=== PATIENT | male | born 1980 | race Caucasian/White ===

== ENCOUNTER 2016-03-19 13:59 | Emergency (ER) | payer BC ==
[2015-09-21 01:34] VITALS: BMI 40.5
[~2016-03-19 13:59] MED LIST: COZAAR50 MG PO; HYDROCODONE-APA1 TAB PO; KEPPRA500 MG PO; NORCO 7.5/325 T1 TA1 PO; PROTONIX40 MG PO; ROBAXIN-750750 MG PO; XANAX0.25 MG PO; XANAX0.5 MG PO
== END 2016-03-19 15:46 | disposition home or self-care (01) ==
LOC: D.ER 13:59
DX: M54.16 Radiculopathy, lumbar region (principal); M54.5 Low back pain; G40.909 Epilepsy, unspecified, not intractable, without status epilepticus

== ENCOUNTER 2016-04-17 17:13 | Emergency (ER) | payer BC ==
[2015-09-21 01:34] VITALS: BMI 40.5
== END 2016-04-17 20:05 | disposition home or self-care (01) ==
LOC: D.ER 17:13
DX: S29.012A Strain of muscle and tendon of back wall of thorax, initial encounter (principal); W13.2XXA Fall from, out of or through roof, initial encounter; Y93.89 Activity, other specified; Y92.019 Unspecified place in single-family (private) house as the place of occurrence of the external cause; S39.012A Strain of muscle, fascia and tendon of lower back, initial encounter; M54.16 Radiculopathy, lumbar region; G40.909 Epilepsy, unspecified, not intractable, without status epilepticus

== ENCOUNTER 2016-04-19 15:52 | Emergency (ER) | payer BC ==
[2015-09-21 01:34] VITALS: BMI 40.5
== END 2016-04-19 20:25 | disposition home or self-care (01) ==
LOC: D.ER 15:52
DX: M54.16 Radiculopathy, lumbar region (principal); R32 Unspecified urinary incontinence; W13.2XXA Fall from, out of or through roof, initial encounter; Y93.89 Activity, other specified; Y92.89 Other specified places as the place of occurrence of the external cause

== ENCOUNTER 2016-05-02 14:22 | Emergency (ER) | payer BC ==
[2015-09-21 01:34] VITALS: BMI 40.5
== END 2016-05-02 19:10 | disposition home or self-care (01) ==
LOC: D.ER 14:22
DX: M54.9 Dorsalgia, unspecified (principal); M54.16 Radiculopathy, lumbar region; G40.909 Epilepsy, unspecified, not intractable, without status epilepticus

== ENCOUNTER 2016-05-12 07:38 | Emergency (ER) | payer SELFPAY ==
[2015-09-21 01:34] VITALS: BMI 40.5
== END 2016-05-12 08:20 | disposition home or self-care (01) ==
LOC: D.ER 07:38
DX: M54.5 Low back pain (principal); F17.200 Nicotine dependence, unspecified, uncomplicated

== ENCOUNTER 2016-05-15 17:20 | Emergency (ER) | payer SELFPAY ==
[2015-09-21 01:34] VITALS: BMI 40.5
[2016-05-15 18:58] LABS: BASOPHILS 0 % (0.0-2.0); EOSINOPHILS 0 % (0-7); IMMATURE GRANULOCYTES 0.3 % (0-5); LYMPHOCYTES 7.5 % (15-50); MCH 27.6 pg (26.0-34.0); MCHC 34.1 g/dL (31.0-37.0); MEAN PLATELET VOLUME 9.7 fL (7.4-10.4); MONOCYTES 0.4 % (2-11); NEUTROPHILS 91.8 % (40-80); PLATELET COUNT 247 10x3/uL (130-400); RBC 5.43 10x6/uL (4.20-6.10); RDW 14.2 % (11.5-14.5); WBC 6.7 10x3/uL (4.8-10.8)
[2016-05-15 19:10] LABS: ANION GAP 14.2 mmol/L (8-16); CALCIUM 9.8 mg/dL (8.5-10.1); CARBON DIOXIDE 24.7 mmol/L (21.0-32.0); CREATININE - SERUM 1.2 mg/dL (0.6-1.3); POTASSIUM - SERUM 3.9 mmol/L (3.5-5.1)
[2016-05-15 20:00] LABS: ERYTHROCYTE SEDIMENTATION RATE 5 mm/hr (0-15)
== END 2016-05-15 20:25 | disposition home or self-care (01) ==
LOC: D.ER 17:20
PROVIDERS: Nurse Practitioner Acute Care
DX: G89.29 Other chronic pain (principal); W18.30XA Fall on same level, unspecified, initial encounter; Y93.89 Activity, other specified; Y92.019 Unspecified place in single-family (private) house as the place of occurrence of the external cause; G40.909 Epilepsy, unspecified, not intractable, without status epilepticus

== ENCOUNTER 2016-05-28 10:03 | Emergency (ER) | payer SELFPAY ==
[2015-09-21 01:34] VITALS: BMI 40.5
== END 2016-05-28 14:58 | disposition home or self-care (01) ==
LOC: D.ER 10:03
DX: S69.91XA Unspecified injury of right wrist, hand and finger(s), initial encounter (principal); W23.1XXA Caught, crushed, jammed, or pinched between stationary objects, initial encounter; Y93.89 Activity, other specified; Y92.019 Unspecified place in single-family (private) house as the place of occurrence of the external cause; M79.641 Pain in right hand; G40.909 Epilepsy, unspecified, not intractable, without status epilepticus; M54.16 Radiculopathy, lumbar region

== ENCOUNTER 2016-12-28 11:45 | Emergency (ER) | payer SELFPAY ==
[2015-09-21 01:34] VITALS: BMI 40.5
== END 2016-12-28 14:16 | disposition home or self-care (01) ==
LOC: D.ER 11:45
DX: S80.01XA Contusion of right knee, initial encounter (principal); W19.XXXA Unspecified fall, initial encounter; Y93.89 Activity, other specified; Y92.029 Unspecified place in mobile home as the place of occurrence of the external cause

== ENCOUNTER 2017-01-16 16:04 | Emergency (ER) | payer SELFPAY ==
[2015-09-21 01:34] VITALS: BMI 40.5
[2017-01-16 16:32] LABS: APPEARANCE CLEAR (CLEAR); BILIRUBIN NEGATIVE (NEGATIVE); COLOR YELLOW (YELLOW); GLUCOSE NEGATIVE (NEGATIVE); KETONE MODERATE mg/dL (NEGATIVE); NITRITE NEGATIVE (NEGATIVE); PROTEIN NEGATIVE (NEGATIVE); SPECIFIC GRAVITY 1.025 (1.005-1.020); UROBILINOGEN NORMAL (NORMAL)
[2017-01-16 16:43] LABS: UDS - AMPHET NEGATIVE QUAL (NEGATIVE); UDS - BARB NEGATIVE QUAL (NEGATIVE); UDS - BENZO POSITIVE QUAL (NEGATIVE); UDS - COCAINE NEGATIVE QUAL (NEGATIVE); UDS - OPIATE POSITIVE QUAL (NEGATIVE); UDS - PCP NEGATIVE QUAL (NEGATIVE); UDS - THC NEGATIVE QUAL (NEGATIVE)
[2017-01-16 16:46] LABS: BASOPHILS 0.2 % (0-2); HEMOGLOBIN 14.3 g/dL (13.5-17.5); IMMATURE GRANULOCYTES 0.2 % (0-5); LYMPHOCYTES 15.5 % (15-50); MCH 28.4 pg (26.0-34.0); MCHC 34.9 g/dL (31.0-37.0); MCV 81.5 fL (80.0-100.0); MEAN PLATELET VOLUME 9.3 fL (7.4-10.4); MONOCYTES 4.6 % (2-11); NEUTROPHILS 78.5 % (40-80); PLATELET COUNT 261 10x3/uL (130-400); RBC 5.03 10x6/uL (4.20-6.10); RDW 13.6 % (11.5-14.5); WBC 5.9 10x3/uL (4.8-10.8)
[2017-01-16 17:15] LABS: ALBUMIN 3.9 g/dL (3.4-5.0); ALKALINE PHOSPHATASE 76 U/L (46-116); ALT (SGPT) 31 U/L (10-68); BILIRUBIN - TOTAL 0.45 mg/dL (0.2-1.3); CALC OSMOLALITY 278 mosm/kg (275-300); CALCIUM 8.9 mg/dL (8.5-10.1); CARBON DIOXIDE 21.7 mmol/L (21.0-32.0); CHLORIDE - SERUM 105 mmol/L (98-107); POTASSIUM - SERUM 3.7 mmol/L (3.5-5.1); PROTEIN - SERUM 7.4 g/dL (6.4-8.2); SODIUM 141 mmol/L (136-145); UREA NITROGEN 10 mg/dL (7-18); eGFR NON AFRICAN AMERICAN 89 mL/min (90-120)
[2017-01-16 17:16] LABS: GLUCOSE 86 mg/dL (74-106)
== END 2017-01-17 00:52 | disposition short-term general hospital (02) ==
LOC: D.ER 16:04
PROVIDERS: Family Medicine
DX: F32.9 Major depressive disorder, single episode, unspecified (principal); R45.851 Suicidal ideations; M54.5 Low back pain